=== PATIENT | male | born 1995 | race African-American/Black ===

== ENCOUNTER 2020-03-08 01:25 | Emergency (ER) | payer SELFPAY ==
[~2020-03-08] VITALS: Ht 185.4 cm; Wt 101.6 kg
[2020-03-08 01:35] VITALS: BP 135/52
--- NOTE | 2020-03-08 01:39 | NUR ---
PT AMBULATED TO BED #8
[2020-03-08] MEDS ORDERED: KETOROLAC 60 MG/2 ML VIAL IM ONE (01:50)
--- NOTE | 2020-03-08 01:54 | NUR ---
24 Y/O MALE PRESENTS TO ER WITH C/O RIGHT ARM/SHOULDER PAIN X 8HRS. 6/10 PAIN. 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 "FEELS LIKE 2 HOT NEEDLES." ALSO C/O TINGLING IN EXTREMITY, CAP REFILL <3 SEC, RADIAL, ULNAR PULSE PALPABLE EVEN, AND STRONG BILATERALLY DENIES INJURY TO ARM, NAUSEA, VOMITING, DIARRHEA, HEADACHE, SOB, COUGH. PT STATED HE TOOK 2 MUSCLE RELAXERS X 3 HRS AGO NAME UNKNOWN BUT EACH WERE 500MG. R/R EQUAL, AND UNLABORED, VSS. SIDE RAIL X2, BED IN LOW POSITION, WILL CONTINUE TO MONITOR. DENIES PMH ALLERGY: PEANUTS
--- NOTE | 2020-03-08 02:38 | NUR ---
Patient discharged with v/s stable. Written and verbal after care instructions given and explained. Patient alert, oriented and verbalized understanding of instructions. Ambulatory with steady gait. All questions addressed prior to discharge. ID band removed. Patient advised to follow up with PMD. Rx of MOTRIN, ROBAXIN given. Patient educated on indication of medication including possible reaction and side effects. Opportunity to ask questions provided and answered.
[2020-03-08 02:39] VITALS: BP 135/52
--- NOTE | 2020-03-08 02:46 | NUR ---
PROVIDED PT WITH SHOULD IMOBBILIZER AND PLACED IT ON PT'S LEFT SHOULDER WITHOUT INCIDENT.
== END 2020-03-08 02:38 | disposition home or self-care (01) ==
LOC: MED 01:25
DX: S46.911A Strain of unspecified muscle, fascia and tendon at shoulder and upper arm level, right arm, initial encounter (principal); R03.0 Elevated blood-pressure reading, without diagnosis of hypertension; Z91.010 Allergy to peanuts; X58.XXXA Exposure to other specified factors, initial encounter; Y93.89 Activity, other specified; Y92.89 Other specified places as the place of occurrence of the external cause; Y99.8 Other external cause status
CPT/HCPCS: 73030; 96372; 99283; J1885; Q0092